=== PATIENT | female | born 1955 | race Caucasian/White ===

== ENCOUNTER → 2017-08-20 | Outpatient (CLI) | payer MEDICARE, MEDICAID ==
[~2017-08-20] MED LIST: /ESCI10TA PO; /LAMO20TA PO; ADV500INH INH; BUPR200T PO; COMBIN INH; LISI5TAB PO; METF500T PO; SERO50TA PO; SIMV20TA2 PO; TOPA100T PO; TRAZ50TA2 PO; VENTAER IN; ZOLP-189 PO
[2017-08-20 16:11] LABS: BASO # 0.1 10^3/uL (0.0-0.2); BASO % 0.9 % (0.0-1.0); EOS # 0.4 10^3/uL (0.0-0.50); EOS % 5.7 % (0.0-3.0); IMMATURE GRANULOCYTE % 0.1 % (0-0); LYMPH # 2.4 10^3/uL (1.5-4.5); LYMPH % 35.6 % (24.0-44.0); MEAN CORPUSCULAR HEMOGLOBIN 32.5 pg (27.0-33.0); MEAN CORPUSCULAR HGB CONC 33.5 g/dl (32.0-36.5); MONO # 0.6 10^3/uL (0.0-0.8); MONO % 8.2 % (0.0-5.0); NEUTROPHILS # 3.3 10^3/uL (1.8-7.7); NEUTROPHILS % 49.5 % (36.0-66.0); PLATELET COUNT, AUTOMATED 301 10^3/uL (150-450); RED CELL DISTRIBUTION WIDTH 13.2 % (11.5-14.5); WHITE BLOOD COUNT 6.7 10^3/uL (4.0-10.0)
[2017-08-20 16:35] LABS: CREATININE FOR GFR 1.16 MG/DL (0.55-1.02); GLOMERULAR FILTRATION RATE 50.4 (>45); POTASSIUM SERUM 4.4 MEQ/L (3.5-5.1)
== END ==
LOC: M LAB 15:33
PROVIDERS: ATTEND Internal Medicine Cardiovascular Disease
DX: R07.9 Chest pain, unspecified (principal)

== ENCOUNTER → 2017-11-28 | Day surgery (SDC) | payer OTHER ==
[~2017-11-28] MED LIST changes: -/ESCI10TA PO; -/LAMO20TA PO; +ACETAMINOPHEN 325 MG TAB PO; -ADV500INH INH; +AcetaZOLAMIDE 500 MG ER CAP PO; -BUPR200T PO; -COMBIN INH; +CYCLOPENTOLATE 2% OPHTH SOLN 2ML BTL As Ordered; +KETOROLAC 0.5% OPHTH SOLN OS; -LISI5TAB PO; +LR 1,000 ML IV; -METF500T PO; +OFLOXACIN 0.3 % (OCUFLOX) OPTH SOL 5ML As Ordered; +PHENYLEPHRINE 2.5% OPHTH SOL 2ML As Ordered; +PHENYLEPHRINE HCL 10 % OPHTH. SOL 5ML OS; +PROPARACAINE 0.5% OPHTH SOL 15ML OS; -SERO50TA PO; -SIMV20TA2 PO; -TOPA100T PO; -TRAZ50TA2 PO; +TRIMETHOBENZAMIDE 300 MG CAP PO; +TROPICAMIDE 1% OPHTH SOLN 2ML As Ordered; -VENTAER IN; -ZOLP-189 PO
[2017-11-28] MEDS: LIDOCAINE 3.5 % 1ML OPHTH TOPICAL GEL OU ×2 (10:43)
[2017-11-28] MEDS: OFLOXACIN 0.3 % (OCUFLOX) OPTH SOL 5ML OS ×2 (10:43)
[2017-11-28] MEDS: PHENYLEPHRINE 2.5% OPHTH SOL 2ML OS ×2 (10:43)
[2017-11-28] MEDS: CYCLOPENTOLATE 2% OPHTH SOLN 2ML BTL OS ×2 (10:43)
[2017-11-28] MEDS: TROPICAMIDE 1% OPHTH SOLN 2ML OS ×2 (10:43)
== END | disposition home or self-care (01) ==
LOC: M SDC 10:08
DX: H25.12 Age-related nuclear cataract, left eye (principal); Z53.09 Procedure and treatment not carried out because of other contraindication; B88.8 Other specified infestations

== ENCOUNTER 2018-02-13 09:04 | Day surgery (SDC) | payer OTHER ==
[~2018-02-13 09:04] MED LIST changes: -AcetaZOLAMIDE 500 MG ER CAP PO; -CYCLOPENTOLATE 2% OPHTH SOLN 2ML BTL As Ordered; -KETOROLAC 0.5% OPHTH SOLN OS; -LR 1,000 ML IV; -OFLOXACIN 0.3 % (OCUFLOX) OPTH SOL 5ML As Ordered; -PHENYLEPHRINE 2.5% OPHTH SOL 2ML As Ordered; -TRIMETHOBENZAMIDE 300 MG CAP PO; -TROPICAMIDE 1% OPHTH SOLN 2ML As Ordered
[2018-02-13] MEDS: LIDOCAINE 3.5 % 1ML OPHTH TOPICAL GEL OU (10:20)
[2018-02-13] MEDS: OFLOXACIN 0.3 % (OCUFLOX) OPTH SOL 5ML OS (10:21)
[2018-02-13] MEDS: TROPICAMIDE 1% OPHTH SOLN 2ML OS (10:22)
[2018-02-13] MEDS: CYCLOPENTOLATE 2% OPHTH SOLN 2ML BTL OS (10:23)
[2018-02-13] MEDS: PHENYLEPHRINE 2.5% OPHTH SOL 2ML OS (10:24)
[2018-02-13 10:42] LABS: BEDSIDE GLUCOSE 132 MG/DL (80-115)
[2018-02-13] MEDS: TETRACAINE 0.5% OPHTH SOLN 4ML As Ordered (11:24)
[2018-02-13] MEDS ORDERED: MIDAZOLAM INJ 2 MG/2 ML VIAL (J2250) As Ordered (11:27)
[2018-02-13] MEDS ORDERED: fentaNYL 100 MCG/2 ML INJECTION (J3010) As Ordered (11:27)
[2018-02-13] MEDS: CEFUROXIME 1MG/0.1ML INTRACAMERAL INJ As Ordered (11:31)
[2018-02-13] MEDS: HEALON DUET (HEALON 10MG/ML 0.55ML & HEALON ENDOCOAT 30MG/ML 0.85ML) As Ordered (11:31)
[2018-02-13] MEDS: POVIDONE-IODINE 5% OPHTH PREP SOL 30ML As Ordered (11:31)
[2018-02-13] MEDS: LIDOCAINE 1% SDV 5 ML VIAL As Ordered (11:31)
[2018-02-13] MEDS: BALANCED SALT IRRIGATION SOLUTION 500ML BAG (FOR OR EYE MACHINE) As Ordered (11:31)
[2018-02-13] MEDS: AcetaZOLAMIDE 500 MG ER CAP PO (11:45)
[2018-02-13] MEDS ORDERED: TRIMETHOBENZAMIDE 300 MG CAP PO (11:45)
[2018-02-13] MEDS: KETOROLAC 0.5% OPHTH SOLN OS (11:45)
== END 2018-02-13 12:20 | disposition home or self-care (01) ==
LOC: M SDC 09:04
DX: H25.12 Age-related nuclear cataract, left eye (principal); E78.5 Hyperlipidemia, unspecified; E11.9 Type 2 diabetes mellitus without complications; F41.9 Anxiety disorder, unspecified; J44.9 Chronic obstructive pulmonary disease, unspecified; F17.210 Nicotine dependence, cigarettes, uncomplicated; Z79.899 Other long term (current) drug therapy
CPT/HCPCS: 66984

== ENCOUNTER 2018-02-20 07:01 | Day surgery (SDC) | payer OTHER ==
[~2018-02-20 07:01] MED LIST changes: +AcetaZOLAMIDE 500MG INJECTION (J1120) IV; +MANNITOL 20% BAG 250 ML IV; +PHENYLEPHRINE 2.5% OPHTH SOL 2ML OD; +PHENYLEPHRINE HCL 10 % OPHTH. SOL 5ML OD; -PHENYLEPHRINE HCL 10 % OPHTH. SOL 5ML OS; +PROPARACAINE 0.5% OPHTH SOL 15ML OD; -PROPARACAINE 0.5% OPHTH SOL 15ML OS
[2018-02-20] MEDS: LIDOCAINE 3.5 % 1ML OPHTH TOPICAL GEL OU (07:27)
[2018-02-20] MEDS: OFLOXACIN 0.3 % (OCUFLOX) OPTH SOL 5ML OD (07:27)
[2018-02-20] MEDS: CYCLOPENTOLATE 2% OPHTH SOLN 2ML BTL OD (07:27)
[2018-02-20] MEDS: TROPICAMIDE 1% OPHTH SOLN 2ML OD (07:27)
[2018-02-20 07:44] LABS: BEDSIDE GLUCOSE 141 MG/DL (80-115)
[2018-02-20] MEDS: POVIDONE-IODINE 5% OPHTH PREP SOL 30ML As Ordered (09:10)
[2018-02-20] MEDS ORDERED: MIDAZOLAM INJ 2 MG/2 ML VIAL (J2250) As Ordered (09:15)
[2018-02-20] MEDS ORDERED: fentaNYL 100 MCG/2 ML INJECTION (J3010) As Ordered (09:15)
[2018-02-20] MEDS: HEALON DUET (HEALON 10MG/ML 0.55ML & HEALON ENDOCOAT 30MG/ML 0.85ML) As Ordered (09:16)
[2018-02-20] MEDS: CEFUROXIME 1MG/0.1ML INTRACAMERAL INJ As Ordered (09:17)
[2018-02-20] MEDS: LIDOCAINE 1% SDV 5 ML VIAL As Ordered (09:17)
[2018-02-20] MEDS: BALANCED SALT IRRIGATION SOLUTION 500ML BAG (FOR OR EYE MACHINE) As Ordered (09:17)
[2018-02-20] MEDS ORDERED: LR 1,000 ML IV (10:00)
[2018-02-20] MEDS: KETOROLAC 0.5% OPHTH SOLN OD (10:00)
[2018-02-20] MEDS ORDERED: fentaNYL 100 MCG/2 ML INJECTION (J3010) IV (10:00)
[2018-02-20] MEDS ORDERED: ONDANSETRON 4MG/2ML VIAL (J2405) IV (10:00)
[2018-02-20] MEDS: AcetaZOLAMIDE 500 MG ER CAP PO (10:00)
[2018-02-20] MEDS ORDERED: TRIMETHOBENZAMIDE 300 MG CAP PO (10:00)
== END 2018-02-20 10:10 | disposition home or self-care (01) ==
LOC: M SDC 07:01
DX: H25.11 Age-related nuclear cataract, right eye (principal); I10 Essential (primary) hypertension; J44.9 Chronic obstructive pulmonary disease, unspecified; G47.30 Sleep apnea, unspecified; E11.9 Type 2 diabetes mellitus without complications; F41.9 Anxiety disorder, unspecified; F32.9 Major depressive disorder, single episode, unspecified; Z79.899 Other long term (current) drug therapy
CPT/HCPCS: 66984